=== PATIENT | female | born 1955 | race Caucasian/White ===

== ENCOUNTER 2018-02-13 15:18 | Emergency (ER) | payer MEDICAID ==
[~2018-02-13] VITALS: Ht 162.6 cm; Wt 81.8 kg
[~2018-02-13 15:18] MED LIST: CITA-278 PO; FAMO40TA59 PO; GLIM1TAB46 PO; LEVO75TA PO; LISI-642 PO; METF1000 PO; ONDA4TAB12 PO; PANT-47 PO; PRAV40TA3 PO
[2018-02-13] MEDS ORDERED: morphine 4 MG/ML inj SYRINge IV PRN (15:30)
[2018-02-13] MEDS ORDERED: normal saline 1000ML IV soln IVB ONE (15:30)
[2018-02-13] MEDS ORDERED: ondansetron/PF 4mg/2ml inj IV ONE (15:30)
[2018-02-13 15:47] LABS: BASOPHILS % (AUTO) 0.3 % (0-1); EOSINOPHILS # (AUTO) 0.2 X10'3 (0-0.9); EOSINOPHILS % (AUTO) 1.8 % (0-6); HEMOGLOBIN 13.1 g/dl (12.0-16.0); LYMPHOCYTES % (AUTO) 23.4 % (21-51); MEAN CORPUSCULAR HEMOGLOBIN 28.1 PG (27.0-31.0); MEAN CORPUSCULAR HGB CONC 33.5 % (33.0-36.5); MEAN CORPUSCULAR VOLUME 83.7 FL (78-98); MEAN PLATELET VOLUME 7.3 FL (7.4-10.4); MONOCYTES # (AUTO) 0.4 X10'3 (0-0.9); MONOCYTES % (AUTO) 5.2 % (2-12); NEUTROPHILS % (AUTO) 69.3 % (42-75); PLATELET COUNT 242 X10'3 (140-440); RED BLOOD COUNT 4.66 X10'6 (4.20-5.60); RED CELL DISTRIBUTION WIDTH 15.5 % (11.5-14.5); WHITE BLOOD COUNT 8.7 X10'3 (4.5-11.0)
[2018-02-13 16:02] LABS: CLARITY,URINE CLEAR (Clear); COLOR,URINE YELLOW (Yellow); GLUCOSE, URINE NEGATIVE (Neg); KETONES,URINE NEGATIVE (Neg); LEUKOCYTE ESTERASE ,URINE TRACE (Neg); NITRITES, URINE NEGATIVE (Neg); OCCULT BLOOD,URINE TRACE-LYSED (Neg); PH,URINE 5.5 (4.8-8.0); PROTEIN,URINE NEGATIVE (Neg); UROBILINOGEN,URINE 0.2 E.U/dL (0.2-1.0)
[2018-02-13 16:03] LABS: UA COLLECTION TYPE VOIDED
[2018-02-13 16:05] LABS: ALANINE AMINOTRANSFERASE 22 U/L (12-78); ALBUMIN 3.8 G/DL (3.4-5.0); ALBUMIN/GLOBULIN RATIO 1.2 (1.1-1.5); ALKALINE PHOSPHATASE 62 IU/L (46-116); ANION GAP 13 (8-16); ASPARTATE AMINO TRANSFERASE 12 U/L (10-37); BILIRUBIN,TOTAL 0.2 MG/DL (0.1-1.0); BLOOD UREA NITROGEN 16 MG/DL (7-18); BUN/CREATININE RATIO 16.2 (6.6-38.0); CALCIUM 8.7 MG/DL (8.5-10.1); CHLORIDE 105 MMOL/L (99-107); CREATININE 0.99 MG/DL (0.40-0.90); GLUCOSE 252 MG/DL (70-104); LIPASE 132 U/L (73-393); POTASSIUM 3.6 MMOL/L (3.5-5.1); SODIUM 140 MMOL/L (135-145); TOTAL CARBON DIOXIDE 22.1 MMOL/L (24-32); TOTAL PROTEIN 7.1 G/DL (6.4-8.2); eGFR 56 ML/MIN
[2018-02-13 16:07] LABS: BACTERIA,URINE NONE SEEN /HPF (Neg); RBC,URINE NONE SEEN /HPF (0-2); WBC,URINE 0-4 /HPF (0-4)
[2018-02-13] MEDS ORDERED: ONDA4TAB9 SL ×2 (16:07→16:12)
[2018-02-13 16:08] LABS: SQUAMOUS EPITHELIAL CELL,UR FEW /LPF (FEW)
[2018-02-13 16:45] VITALS: BP 115/63
== END 2018-02-13 16:46 | disposition home or self-care (01) ==
LOC: ER 15:18
DX: A08.4 Viral intestinal infection, unspecified (principal); E86.0 Dehydration; R00.0 Tachycardia, unspecified; E78.00 Pure hypercholesterolemia, unspecified; I10 Essential (primary) hypertension; K21.9 Gastro-esophageal reflux disease without esophagitis; E11.9 Type 2 diabetes mellitus without complications; F31.9 Bipolar disorder, unspecified; Z90.89 Acquired absence of other organs; Z98.890 Other specified postprocedural states; Z79.84 Long term (current) use of oral hypoglycemic drugs; Z79.899 Other long term (current) drug therapy
CPT/HCPCS: 36415; 71045; 80053; 81001; 83690; 84484; 85025; 87077; 87088; 87186; 93005; 96361; 96374; 96375; 99285; J2270; J2405; J7030

== ENCOUNTER 2018-07-18 17:06 | Emergency (ER) | payer MEDICAID ==
[~2018-07-18] VITALS: Ht 162.6 cm; Wt 79.5 kg
[2018-07-18 17:14] VITALS: BP 124/75
[2018-07-18] MEDS ORDERED: HYDROcodone/acetaminophen 10/325mg tab PO ONE (17:50)
== END 2018-07-18 18:25 | disposition home or self-care (01) ==
LOC: ER 17:07
DX: G89.18 Other acute postprocedural pain (principal); M25.561 Pain in right knee; E78.00 Pure hypercholesterolemia, unspecified; I10 Essential (primary) hypertension; K21.9 Gastro-esophageal reflux disease without esophagitis; E11.9 Type 2 diabetes mellitus without complications; Z90.49 Acquired absence of other specified parts of digestive tract; Z98.890 Other specified postprocedural states; Z79.84 Long term (current) use of oral hypoglycemic drugs; Z79.899 Other long term (current) drug therapy
CPT/HCPCS: 99282

== ENCOUNTER 2019-01-12 09:39 | Emergency (ER) | payer MEDICAID ==
[~2019-01-12] VITALS: Ht 162.6 cm; Wt 79.5 kg
[~2019-01-12 09:39] MED LIST changes: -CITA-278 PO; +CITA20TA28 PO
[2019-01-12] MEDS ORDERED: normal saline 1000ML IV soln IVB ONE (09:45)
[2019-01-12] MEDS ORDERED: ondansetron/PF 4mg/2ml inj IV ONE (09:45)
[2019-01-12] MEDS ORDERED: morphine 4 MG/ML inj SYRINge IV PRN (09:45)
[2019-01-12 10:23] LABS: BASOPHILS % (AUTO) 0.6 % (0-1); EOSINOPHILS % (AUTO) 0.1 % (0-6); HEMATOCRIT 38.2 % (35.0-45.0); HEMOGLOBIN 12.7 g/dl (12.0-16.0); LYMPHOCYTES # (AUTO) 0.6 X10'3 (1.1-4.8); LYMPHOCYTES % (AUTO) 8.9 % (21-51); MEAN CORPUSCULAR HEMOGLOBIN 28.4 PG (27.0-31.0); MEAN CORPUSCULAR HGB CONC 33.3 g/dL (33.0-36.5); MEAN CORPUSCULAR VOLUME 85.5 FL (78-98); MEAN PLATELET VOLUME 7.6 FL (7.4-10.4); MONOCYTES # (AUTO) 0.4 X10'3 (0-0.9); NEUTROPHILS # (AUTO) 5.6 X10'3 (1.8-7.7); NEUTROPHILS % (AUTO) 84.4 % (42-75); PLATELET COUNT 262 X10'3 (140-440); RED BLOOD COUNT 4.47 X10'6 (4.20-5.60); RED CELL DISTRIBUTION WIDTH 14.2 % (11.5-14.5); WHITE BLOOD COUNT 6.7 X10'3 (4.5-11.0)
[2019-01-12 10:28] VITALS: BP 145/70
[2019-01-12 10:35] LABS: ALANINE AMINOTRANSFERASE 25 U/L (12-78); ALBUMIN 3.8 G/DL (3.4-5.0); ALBUMIN/GLOBULIN RATIO 1.2 (1.1-1.5); ALKALINE PHOSPHATASE 68 IU/L (46-116); ANION GAP 14 (8-16); ASPARTATE AMINO TRANSFERASE 12 U/L (10-37); BILIRUBIN,TOTAL 0.5 MG/DL (0.1-1.0); BLOOD UREA NITROGEN 15 MG/DL (7-18); BUN/CREATININE RATIO 15.5 (6.6-38.0); CALCIUM 8.7 MG/DL (8.5-10.1); CHLORIDE 106 MMOL/L (99-107); CREATININE 0.97 MG/DL (0.40-0.90); GLUCOSE 308 MG/DL (70-104); LIPASE 62 U/L (73-393); POTASSIUM 3.5 MMOL/L (3.5-5.1); SODIUM 143 MMOL/L (135-145); TOTAL CARBON DIOXIDE 23.3 MMOL/L (24-32); TOTAL PROTEIN 7.1 G/DL (6.4-8.2); eGFR 58 ML/MIN
[2019-01-12] MEDS ORDERED: ONDA8TAB6 PO (11:41)
[2019-01-12] MEDS ORDERED: proCHLORperazine 10 MG/2 ml inj IV ONE (11:45)
== END 2019-01-12 11:55 | disposition home or self-care (01) ==
LOC: ER 09:39
DX: E86.0 Dehydration (principal); E11.65 Type 2 diabetes mellitus with hyperglycemia; R11.2 Nausea with vomiting, unspecified; R19.7 Diarrhea, unspecified; E78.00 Pure hypercholesterolemia, unspecified; I10 Essential (primary) hypertension; K21.9 Gastro-esophageal reflux disease without esophagitis; F32.9 Major depressive disorder, single episode, unspecified; F17.200 Nicotine dependence, unspecified, uncomplicated; Z88.8 Allergy status to other drugs, medicaments and biological substances; Z79.84 Long term (current) use of oral hypoglycemic drugs; Z79.899 Other long term (current) drug therapy; Z98.890 Other specified postprocedural states; Z90.49 Acquired absence of other specified parts of digestive tract
CPT/HCPCS: 36415; 80053; 83690; 85025; 96361; 96374; 96375; 99283; J0780; J2270; J7030

== ENCOUNTER 2020-12-29 08:17 | Day surgery (SDC) | payer MEDICARE, MEDICAID ==
[~2020-12-29] VITALS: Ht 162.6 cm; Wt 79.5 kg
[~2020-12-29 08:17] MED LIST changes: +AMA1T PO; -GLIM1TAB46 PO; +ONDA8TAB6 PO
[2020-12-29 08:35] VITALS: BP 134/76
[2020-12-29] MEDS ORDERED: fentaNYL/PF 50MCG/1 ML 2ML syringe ONE (08:50)
[2020-12-29] MEDS ORDERED: MIDAZolam 1 MG/ML 5ML VIAL ONE (08:51)
[2020-12-29] MEDS ORDERED: FERR-28 PO (09:21)
[2020-12-29] MEDS ORDERED: MAGN400C PO (09:22)
[2020-12-29] MEDS ORDERED: CALC500T11 PO (09:22)
[2020-12-29 09:35] VITALS: BP 117/74
[2020-12-29 09:45] VITALS: BP 114/68
[2020-12-29 09:55] VITALS: BP 116/70
[2020-12-29 10:05] VITALS: BP 116/72
== END 2020-12-29 10:35 | disposition home or self-care (01) ==
LOC: GI LAB 08:17
PROVIDERS: ATTEND Specialist
DX: R10.30 Lower abdominal pain, unspecified (principal); R19.5 Other fecal abnormalities; I10 Essential (primary) hypertension; E11.9 Type 2 diabetes mellitus without complications; Z79.84 Long term (current) use of oral hypoglycemic drugs; Z79.899 Other long term (current) drug therapy
CPT/HCPCS: 45378; 99153; G0500; J2250; J3010; J7040; 99152; A4620

== ENCOUNTER 2020-12-31 17:58 | Emergency (ER) | payer MEDICARE, MEDICAID ==
[~2020-12-31] VITALS: Ht 162.6 cm; Wt 79.5 kg
[~2020-12-31 17:58] MED LIST changes: +CALC500T11 PO; -FAMO40TA59 PO; +FERR-28 PO; +MAGN400C PO; -ONDA4TAB12 PO; -ONDA8TAB6 PO
[2020-12-31 18:48] VITALS: BP 137/84
[2020-12-31 19:22] LABS: CLARITY,URINE CLEAR (Clear); COLOR,URINE YELLOW (Yellow); GLUCOSE, URINE NEGATIVE (Neg); KETONES,URINE NEGATIVE (Neg); LEUKOCYTE ESTERASE ,URINE SMALL (Neg); NITRITES, URINE NEGATIVE (Neg); OCCULT BLOOD,URINE NEGATIVE (Neg); PROTEIN,URINE NEGATIVE (Neg); UROBILINOGEN,URINE 0.2 E.U/dL (0.2-1.0)
[2020-12-31 19:30] LABS: UA COLLECTION TYPE CLN CATCH MIDSTREAM
[2020-12-31 19:31] LABS: BACTERIA,URINE NONE SEEN /HPF (Neg); RBC,URINE NONE SEEN /HPF (0-2); SQUAMOUS EPITHELIAL CELL,UR FEW /LPF (FEW); WBC,URINE 0-4 /HPF (0-4)
[2020-12-31 19:48] LABS: BASOPHILS % (AUTO) 0.8 % (0-1); EOSINOPHILS # (AUTO) 0.2 X10'3 (0-0.9); EOSINOPHILS % (AUTO) 3.8 % (0-6); HEMATOCRIT 34.5 % (35.0-45.0); HEMOGLOBIN 11.5 g/dl (12.0-16.0); LYMPHOCYTES # (AUTO) 1.9 X10'3 (1.1-4.8); LYMPHOCYTES % (AUTO) 34.5 % (21-51); MEAN CORPUSCULAR HEMOGLOBIN 29.5 PG (27.0-31.0); MEAN CORPUSCULAR HGB CONC 33.3 g/dL (33.0-36.5); MEAN CORPUSCULAR VOLUME 88.7 FL (78-98); MEAN PLATELET VOLUME 7.5 FL (7.4-10.4); MONOCYTES # (AUTO) 0.4 X10'3 (0-0.9); NEUTROPHILS # (AUTO) 2.9 X10'3 (1.8-7.7); NEUTROPHILS % (AUTO) 52.9 % (42-75); PLATELET COUNT 234 X10'3 (140-440); RED BLOOD COUNT 3.89 X10'6 (4.20-5.60); RED CELL DISTRIBUTION WIDTH 14.5 % (11.5-14.5); WHITE BLOOD COUNT 5.5 X10'3 (4.5-11.0)
[2020-12-31 20:17] LABS: ALANINE AMINOTRANSFERASE 29 U/L (12-78); ALBUMIN 3.9 G/DL (3.4-5.0); ALBUMIN/GLOBULIN RATIO 1.3 (1.1-1.5); ALKALINE PHOSPHATASE 45 IU/L (46-116); ANION GAP 7 (8-16); ASPARTATE AMINO TRANSFERASE 20 U/L (10-37); BILIRUBIN,TOTAL 0.4 MG/DL (0.1-1.0); BLOOD UREA NITROGEN 14 MG/DL (7-18); BUN/CREATININE RATIO 16.5 (6.6-38.0); CALCIUM 8.8 MG/DL (8.5-10.1); CHLORIDE 107 MMOL/L (99-107); CREATININE 0.85 MG/DL (0.40-0.90); GLUCOSE 105 MG/DL (70-104); LIPASE 69 U/L (73-393); POTASSIUM 3.6 MMOL/L (3.5-5.1); SODIUM 141 MMOL/L (135-145); TOTAL CARBON DIOXIDE 27.3 MMOL/L (24-32); TOTAL PROTEIN 6.9 G/DL (6.4-8.2); eGFR 67 ML/MIN
[2020-12-31] MEDS ORDERED: lactulose 20gm/30ml cup PO ONE (20:25)
[2020-12-31] MEDS ORDERED: magnesium hydroxide 30ml (MOM) UD suspension PO ONE (20:25)
== END 2020-12-31 21:52 | disposition home or self-care (01) ==
LOC: ER 17:59
DX: K59.00 Constipation, unspecified (principal); R11.2 Nausea with vomiting, unspecified; E78.00 Pure hypercholesterolemia, unspecified; I10 Essential (primary) hypertension; K21.9 Gastro-esophageal reflux disease without esophagitis; E11.9 Type 2 diabetes mellitus without complications; Z90.49 Acquired absence of other specified parts of digestive tract; Z98.890 Other specified postprocedural states; Z88.8 Allergy status to other drugs, medicaments and biological substances; Z79.899 Other long term (current) drug therapy
CPT/HCPCS: 36415; 74176; 80053; 81001; 83690; 85025; 87077; 87088; 87186; 99284

== ENCOUNTER 2021-01-10 21:19 | Emergency (ER) | payer MEDICARE, MEDICAID ==
[~2021-01-10] VITALS: Ht 162.6 cm; Wt 77.3 kg
[2021-01-10 21:35] VITALS: BP 119/78
[2021-01-10 22:32] LABS: BASOPHILS % (AUTO) 0.6 % (0-1); EOSINOPHILS # (AUTO) 0.2 X10'3 (0-0.9); EOSINOPHILS % (AUTO) 3.2 % (0-6); HEMATOCRIT 37.9 % (35.0-45.0); HEMOGLOBIN 12.7 g/dl (12.0-16.0); LYMPHOCYTES # (AUTO) 2.2 X10'3 (1.1-4.8); LYMPHOCYTES % (AUTO) 34.8 % (21-51); MEAN CORPUSCULAR HEMOGLOBIN 29.5 PG (27.0-31.0); MEAN CORPUSCULAR HGB CONC 33.4 g/dL (33.0-36.5); MEAN CORPUSCULAR VOLUME 88.1 FL (78-98); MEAN PLATELET VOLUME 7.5 FL (7.4-10.4); MONOCYTES # (AUTO) 0.5 X10'3 (0-0.9); MONOCYTES % (AUTO) 7.6 % (2-12); NEUTROPHILS # (AUTO) 3.4 X10'3 (1.8-7.7); NEUTROPHILS % (AUTO) 53.8 % (42-75); PLATELET COUNT 263 X10'3 (140-440); RED CELL DISTRIBUTION WIDTH 14.3 % (11.5-14.5); WHITE BLOOD COUNT 6.3 X10'3 (4.5-11.0)
[2021-01-10 22:45] LABS: ALANINE AMINOTRANSFERASE 29 U/L (12-78); ALBUMIN 4.3 G/DL (3.4-5.0); ALBUMIN/GLOBULIN RATIO 1.4 (1.1-1.5); ALKALINE PHOSPHATASE 48 IU/L (46-116); ANION GAP 9 (8-16); ASPARTATE AMINO TRANSFERASE 22 U/L (10-37); BILIRUBIN,TOTAL 0.6 MG/DL (0.1-1.0); BLOOD UREA NITROGEN 13 MG/DL (7-18); BUN/CREATININE RATIO 14.4 (6.6-38.0); CALCIUM 9.4 MG/DL (8.5-10.1); CHLORIDE 104 MMOL/L (99-107); GLUCOSE 89 MG/DL (70-104); LIPASE 56 U/L (73-393); POTASSIUM 3.7 MMOL/L (3.5-5.1); SODIUM 142 MMOL/L (135-145); TOTAL CARBON DIOXIDE 29.2 MMOL/L (24-32); TOTAL PROTEIN 7.3 G/DL (6.4-8.2); eGFR 62 ML/MIN
== END 2021-01-11 03:35 | disposition left against medical advice (07) ==
LOC: ER 21:21
DX: R42 Dizziness and giddiness (principal); Z53.21 Procedure and treatment not carried out due to patient leaving prior to being seen by health care provider
CPT/HCPCS: 36415; 80053; 83690; 85025; 93005

== ENCOUNTER 2021-05-14 01:02 | Emergency (ER) | payer MEDICARE, MEDICAID ==
[~2021-05-14] VITALS: Ht 162.6 cm; Wt 70.5 kg
[2021-05-14] MEDS ORDERED: pantoprazole 40 MG vial IV ONE (01:25)
[2021-05-14] MEDS ORDERED: ondansetron/PF 4mg/2ml inj IV ONE (01:25)
[2021-05-14] MEDS ORDERED: normal saline 1000ML IV soln IVB ONE (01:25)
[2021-05-14] MEDS ORDERED: diazepam inj 5 MG/ML inj. IV ONE (01:55)
[2021-05-14 02:03] LABS: BASOPHILS % (AUTO) 0.3 % (0-1); EOSINOPHILS % (AUTO) 0.2 % (0-6); HEMATOCRIT 39.1 % (35.0-45.0); HEMOGLOBIN 13.2 g/dl (12.0-16.0); LYMPHOCYTES # (AUTO) 1.2 X10'3 (1.1-4.8); LYMPHOCYTES % (AUTO) 10.8 % (21-51); MEAN CORPUSCULAR HEMOGLOBIN 29.7 PG (27.0-31.0); MEAN CORPUSCULAR HGB CONC 33.7 g/dL (33.0-36.5); MEAN PLATELET VOLUME 7.8 FL (7.4-10.4); MONOCYTES # (AUTO) 0.6 X10'3 (0-0.9); MONOCYTES % (AUTO) 5.8 % (2-12); NEUTROPHILS # (AUTO) 8.9 X10'3 (1.8-7.7); NEUTROPHILS % (AUTO) 82.9 % (42-75); PLATELET COUNT 282 X10'3 (140-440); RED BLOOD COUNT 4.44 X10'6 (4.20-5.60); RED CELL DISTRIBUTION WIDTH 13.7 % (11.5-14.5); WHITE BLOOD COUNT 10.7 X10'3 (4.5-11.0)
[2021-05-14 02:20] LABS: ALANINE AMINOTRANSFERASE 32 U/L (12-78); ALBUMIN 4.1 G/DL (3.4-5.0); ALBUMIN/GLOBULIN RATIO 1.3 (1.1-1.5); ALKALINE PHOSPHATASE 59 IU/L (46-116); ANION GAP 13 (8-16); ASPARTATE AMINO TRANSFERASE 18 U/L (10-37); BILIRUBIN,TOTAL 0.5 MG/DL (0.1-1.0); BLOOD UREA NITROGEN 18 MG/DL (7-18); BUN/CREATININE RATIO 16.2 (6.6-38.0); CALCIUM 9.3 MG/DL (8.5-10.1); CHLORIDE 107 MMOL/L (99-107); CREATININE 1.11 MG/DL (0.40-0.90); GLUCOSE 340 MG/DL (70-104); POTASSIUM 3.9 MMOL/L (3.5-5.1); SODIUM 145 MMOL/L (135-145); TOTAL PROTEIN 7.2 G/DL (6.4-8.2); eGFR 49 ML/MIN
[2021-05-14 02:21] LABS: LIPASE 64 U/L (73-393)
[2021-05-14] MEDS ORDERED: proCHLORperazine 10 MG/2 ml inj IV ONE (03:20)
[2021-05-14 04:15] LABS: CLARITY,URINE CLEAR (Clear); COLOR,URINE YELLOW (Yellow); UA COLLECTION TYPE CLN CATCH MIDSTREAM
[2021-05-14 04:16] LABS: GLUCOSE, URINE >=1000 mg/dl (Neg); KETONES,URINE 80 mg/dl (Neg); LEUKOCYTE ESTERASE ,URINE NEGATIVE (Neg); NITRITES, URINE POSITIVE (Neg); OCCULT BLOOD,URINE NEGATIVE (Neg); PROTEIN,URINE NEGATIVE (Neg); UROBILINOGEN,URINE 0.2 E.U/dL (0.2-1.0)
[2021-05-14 04:26] LABS: BACTERIA,URINE 4+ /HPF (Neg); MUCUS STRANDS NONE SEEN /LPF (Neg); RBC,URINE NONE SEEN /HPF (0-2); SQUAMOUS EPITHELIAL CELL,UR NONE SEEN /LPF (FEW)
[2021-05-14] MEDS ORDERED: CefTRIAXone/D5W-Rocephin 1gm 50 ML IV ONE (05:10)
[2021-05-14] MEDS ORDERED: CEPH-585 PO (06:06)
[2021-05-14] MEDS ORDERED: PROC-8 PO (06:06)
[2021-05-14 08:16] VITALS: BP 112/60
== END 2021-05-14 08:17 | disposition home or self-care (01) ==
LOC: ER 01:03
DX: N39.0 Urinary tract infection, site not specified (principal); R11.2 Nausea with vomiting, unspecified; R19.7 Diarrhea, unspecified; E78.00 Pure hypercholesterolemia, unspecified; K21.9 Gastro-esophageal reflux disease without esophagitis; E11.9 Type 2 diabetes mellitus without complications; Z90.49 Acquired absence of other specified parts of digestive tract; Z98.890 Other specified postprocedural states; Z72.89 Other problems related to lifestyle; Z79.899 Other long term (current) drug therapy; Z88.7 Allergy status to serum and vaccine; Z88.8 Allergy status to other drugs, medicaments and biological substances
CPT/HCPCS: 36415; 71045; 80053; 81001; 83690; 84484; 85025; 87077; 87088; 87186; 93005; 96361; 96365; 96366; 96375; 99285; C9113; J0696; J0780; J2405; J3360; J7030; 96374; 99284

== ENCOUNTER 2021-08-12 12:03 | Emergency (ER) | payer MEDICARE, MEDICAID ==
[~2021-08-12] VITALS: Ht 162.6 cm; Wt 68.0 kg
[~2021-08-12 12:03] MED LIST changes: +CEPH-585 PO; +PROC-8 PO
[2021-08-12 12:58] VITALS: BP 101/67
[2021-08-12] MEDS ORDERED: ketorolac trometh inj. 60 MG/2 ML VIAL IM ONE (14:35)
[2021-08-12] MEDS ORDERED: HYDR-3972 PO (14:44)
[2021-08-12] MEDS ORDERED: ORPH100T2 PO (14:44)
== END 2021-08-12 15:29 | disposition home or self-care (01) ==
LOC: ER 12:03
DX: M54.2 Cervicalgia (principal); R59.1 Generalized enlarged lymph nodes; E78.00 Pure hypercholesterolemia, unspecified; I10 Essential (primary) hypertension; K21.9 Gastro-esophageal reflux disease without esophagitis; E11.9 Type 2 diabetes mellitus without complications; F31.9 Bipolar disorder, unspecified; Z90.49 Acquired absence of other specified parts of digestive tract; Z98.890 Other specified postprocedural states; Z72.89 Other problems related to lifestyle; Z88.8 Allergy status to other drugs, medicaments and biological substances; Z79.899 Other long term (current) drug therapy; Z79.84 Long term (current) use of oral hypoglycemic drugs
CPT/HCPCS: 72040; 96372; 99283; J1885

== ENCOUNTER 2021-10-15 21:43 | Emergency (ER) | payer MEDICARE, MEDICAID ==
[~2021-10-15] VITALS: Ht 162.6 cm; Wt 68.1 kg
[~2021-10-15 21:43] MED LIST changes: +ORPH100T2 PO
[2021-10-15 22:01] VITALS: BP 125/77
[2021-10-15] MEDS ORDERED: oxyCODONE IR 5mg (immed. release) tablet PO ONE (23:30)
[2021-10-15] MEDS ORDERED: OXYC-658 PO (23:34)
== END 2021-10-15 23:57 | disposition home or self-care (01) ==
LOC: ER 21:47
DX: M77.41 Metatarsalgia, right foot (principal); E78.00 Pure hypercholesterolemia, unspecified; I10 Essential (primary) hypertension; K21.9 Gastro-esophageal reflux disease without esophagitis; E11.9 Type 2 diabetes mellitus without complications; Z79.899 Other long term (current) drug therapy; Z88.8 Allergy status to other drugs, medicaments and biological substances
CPT/HCPCS: 73630; 99283

== ENCOUNTER 2022-01-09 14:30 | Outpatient (CLI) | payer MEDICARE, MEDICAID ==
[2022-01-09 10:27] LABS: CLARITY,URINE CLEAR (Clear); COLOR,URINE YELLOW (Yellow); GLUCOSE, URINE >=1000 mg/dl (Neg); KETONES,URINE NEGATIVE (Neg); LEUKOCYTE ESTERASE ,URINE TRACE (Neg); NITRITES, URINE NEGATIVE (Neg); OCCULT BLOOD,URINE TRACE-INTACT (Neg); PH,URINE 5.5 (4.8-8.0); PROTEIN,URINE NEGATIVE (Neg); UROBILINOGEN,URINE 0.2 E.U/dL (0.2-1.0)
[2022-01-09 10:35] LABS: HEMOGLOBIN A1C 7.8 % (4.5-6.2)
[2022-01-09 10:38] LABS: BASOPHILS % (AUTO) 0.8 % (0-1); EOSINOPHILS # (AUTO) 0.1 X10'3 (0-0.9); EOSINOPHILS % (AUTO) 1.8 % (0-6); LYMPHOCYTES # (AUTO) 1.8 X10'3 (1.1-4.8); LYMPHOCYTES % (AUTO) 34.6 % (21-51); MEAN CORPUSCULAR HEMOGLOBIN 27.2 PG (27.0-31.0); MEAN CORPUSCULAR HGB CONC 32.7 g/dL (33.0-36.5); MEAN CORPUSCULAR VOLUME 83.2 FL (78-98); MEAN PLATELET VOLUME 7.3 FL (7.4-10.4); MONOCYTES # (AUTO) 0.4 X10'3 (0-0.9); MONOCYTES % (AUTO) 7.3 % (2-12); NEUTROPHILS % (AUTO) 55.5 % (42-75); PRE OP HEMATOCRIT 43.2 % (35.0-45.0); PRE OP HEMOGLOBIN 14.1 g/dL (12.0-16.0); PRE OP PLATELET COUNT 250 X10'3 (140-440); RED BLOOD COUNT 5.19 X10'6 (4.20-5.60); RED CELL DISTRIBUTION WIDTH 15.5 % (11.5-14.5)
[2022-01-09 10:39] LABS: UA COLLECTION TYPE CLN CATCH MIDSTREAM
[2022-01-09 10:41] LABS: ALBUMIN 4.2 G/DL (3.4-5.0); ALBUMIN/GLOBULIN RATIO 1.2 (1.1-1.5); ALKALINE PHOSPHATASE 64 IU/L (46-116); BLOOD UREA NITROGEN 17 MG/DL (7-18); BUN/CREATININE RATIO 19.3 (6.6-38.0); CALCIUM 9.2 MG/DL (8.5-10.1); CHLORIDE 105 MMOL/L (99-107); CREATININE 0.88 MG/DL (0.40-0.90); PRE OP ALT 28 U/L (30-65); PRE OP ANION GAP 10 (8-16); PRE OP AST 20 U/L (10-37); PRE OP BILIRUB, TOTAL 0.5 MG/DL (0.0-1.0); PRE OP GLUCOSE 108 MG/DL (70-104); PRE OP POTASSIUM 4.1 MMOL/L (3.4-5.1); PRE OP SODIUM 143 MMOL/L (135-145); TOTAL CARBON DIOXIDE 28.2 MMOL/L (24-32); TOTAL PROTEIN 7.7 G/DL (6.4-8.2); eGFR 64 ML/MIN
[2022-01-09 11:01] LABS: MUCUS STRANDS FEW /LPF (Neg)
[2022-01-09 11:04] LABS: BACTERIA,URINE 2+ /HPF (Neg)
[2022-01-09 11:05] LABS: RBC,URINE 0-2 /HPF (0-2)
[2022-01-09 11:06] LABS: TRANSITIONAL EPI CELLS,URINE FEW /HPF
[2022-01-09 11:09] LABS: AMORPHOUS URATES 1+
[2022-01-09 11:11] LABS: SQUAMOUS EPITHELIAL CELL,UR MODERATE /LPF (FEW)
[2022-01-09 11:13] LABS: WBC,URINE 20-30 /HPF (0-4)
[2022-01-09 11:16] LABS: WBC CLUMPS,URINE MODERATE /HPF (NEGATIVE)
[~2022-01-09 14:30] MED LIST changes: +ALBU8.5H17 INH; +ATOR40TA PO; +CALC-853 PO; +DICL20GE TOP; +EMPA10TA PO; +FLUT1AER INH; +POLY15DR66 EACHEYE; +SITA25TA3 PO
== END 2022-01-09 23:59 | disposition home or self-care (01) ==
LOC: PRE-OP 14:30 → EDSTATUS 01-11 08:45
PROVIDERS: ATTEND Podiatrist Foot & Ankle Surgery
DX: Z01.818 Encounter for other preprocedural examination (principal); M20.42 Other hammer toe(s) (acquired), left foot; M19.072 Primary osteoarthritis, left ankle and foot; I10 Essential (primary) hypertension; E11.9 Type 2 diabetes mellitus without complications
CPT/HCPCS: 36415; 80053; 81001; 83036; 85025; 87077; 87088; 87186; 93005

== ENCOUNTER 2022-08-08 19:50 | Emergency (ER) | payer MEDICARE, MEDICAID ==
[~2022-08-08] VITALS: Ht 162.6 cm; Wt 82.4 kg
[~2022-08-08 19:50] MED LIST changes: -CALC500T11 PO; -CEPH-585 PO; -LISI-642 PO; -ORPH100T2 PO; -PRAV40TA3 PO; -PROC-8 PO
[2022-08-08 22:32] LABS: BASOPHILS % (AUTO) 0.7 % (0-1); EOSINOPHILS # (AUTO) 0.1 X10'3 (0-0.9); EOSINOPHILS % (AUTO) 1.5 % (0-6); HEMATOCRIT 40.6 % (35.0-45.0); HEMOGLOBIN 13.3 g/dl (12.0-16.0); LYMPHOCYTES # (AUTO) 2.4 X10'3 (1.1-4.8); MEAN CORPUSCULAR HEMOGLOBIN 27.9 PG (27.0-31.0); MEAN CORPUSCULAR HGB CONC 32.7 g/dL (33.0-36.5); MEAN CORPUSCULAR VOLUME 85.3 FL (78-98); MEAN PLATELET VOLUME 7.6 FL (7.4-10.4); MONOCYTES # (AUTO) 0.5 X10'3 (0-0.9); MONOCYTES % (AUTO) 7.7 % (2-12); NEUTROPHILS # (AUTO) 3.6 X10'3 (1.8-7.7); NEUTROPHILS % (AUTO) 54.1 % (42-75); PLATELET COUNT 257 X10'3 (140-440); RED BLOOD COUNT 4.76 X10'6 (4.20-5.60); RED CELL DISTRIBUTION WIDTH 15.1 % (11.5-14.5); WHITE BLOOD COUNT 6.7 X10'3 (4.5-11.0)
[2022-08-08 22:41] LABS: CLARITY,URINE SLIGHTLY CLOUDY (Clear); COLOR,URINE YELLOW (Yellow); GLUCOSE, URINE >=1000 mg/dl (Neg); KETONES,URINE NEGATIVE (Neg); LEUKOCYTE ESTERASE ,URINE TRACE (Neg); NITRITES, URINE POSITIVE (Neg); OCCULT BLOOD,URINE TRACE-INTACT (Neg); PROTEIN,URINE NEGATIVE (Neg); UROBILINOGEN,URINE 0.2 E.U/dL (0.2-1.0)
[2022-08-08 22:42] LABS: ALANINE AMINOTRANSFERASE 24 U/L (12-78); ALBUMIN 3.8 G/DL (3.4-5.0); ALBUMIN/GLOBULIN RATIO 1.1 (1.1-1.5); ALKALINE PHOSPHATASE 69 IU/L (46-116); ANION GAP 9 (8-16); ASPARTATE AMINO TRANSFERASE 16 U/L (10-37); BILIRUBIN,TOTAL 0.3 MG/DL (0.1-1.0); BLOOD UREA NITROGEN 25 MG/DL (7-18); BUN/CREATININE RATIO 28.4 (6.6-38.0); CALCIUM 9.4 MG/DL (8.5-10.1); CHLORIDE 108 MMOL/L (99-107); CREATININE 0.88 MG/DL (0.40-0.90); GLUCOSE 125 MG/DL (70-104); LIPASE 79 U/L (73-393); POTASSIUM 4.3 MMOL/L (3.5-5.1); SODIUM 141 MMOL/L (135-145); TOTAL CARBON DIOXIDE 23.8 MMOL/L (24-32); TOTAL PROTEIN 7.3 G/DL (6.4-8.2); eGFR 64 ML/MIN
[2022-08-08 22:46] LABS: UA COLLECTION TYPE NON-SPECIFIED
[2022-08-08 22:47] LABS: SQUAMOUS EPITHELIAL CELL,UR MODERATE /LPF (FEW)
[2022-08-08 22:48] LABS: BACTERIA,URINE 2+ /HPF (Neg); TRANSITIONAL EPI CELLS,URINE MODERATE /HPF
[2022-08-08 22:49] LABS: RBC,URINE 0-2 /HPF (0-2); WBC CLUMPS,URINE MANY /HPF (NEGATIVE)
--- NOTE | 2022-08-08 23:15 | NUR ---
pt. taken to Room F via w/c for pelvic exam. Exam done by Dr. Mensah with myself present in room. Pt. beth with some discomfort. Back to room 1 via w/c, resting quietly.
[2022-08-09 01:58] VITALS: BP 130/87
[2022-08-09] MEDS ORDERED: CEPH-585 PO (02:05)
[2022-08-09] MEDS ORDERED: FLUC150T PO (02:05)
== END 2022-08-09 03:03 | disposition home or self-care (01) ==
LOC: ER 19:51
DX: N39.0 Urinary tract infection, site not specified (principal); R10.2 Pelvic and perineal pain; I10 Essential (primary) hypertension; E78.00 Pure hypercholesterolemia, unspecified; K21.9 Gastro-esophageal reflux disease without esophagitis; E11.9 Type 2 diabetes mellitus without complications; F31.9 Bipolar disorder, unspecified; Z88.8 Allergy status to other drugs, medicaments and biological substances
CPT/HCPCS: 36415; 74176; 80053; 81001; 83690; 85025; 87077; 87088; 87186; 87210; 99284

== ENCOUNTER 2022-08-26 20:31 | Emergency (ER) | payer MEDICARE, MEDICAID ==
[~2022-08-26] VITALS: Ht 162.6 cm; Wt 76.4 kg
[~2022-08-26 20:31] MED LIST changes: +CEPH-585 PO
[2022-08-26 21:02] VITALS: BP 118/82
[2022-08-26 21:20] LABS: CLARITY,URINE SLIGHTLY CLOUDY (Clear); COLOR,URINE YELLOW (Yellow); GLUCOSE, URINE >=1000 mg/dl (Neg); KETONES,URINE TRACE mg/dl (Neg); LEUKOCYTE ESTERASE ,URINE NEGATIVE (Neg); NITRITES, URINE NEGATIVE (Neg); OCCULT BLOOD,URINE TRACE-INTACT (Neg); PROTEIN,URINE NEGATIVE (Neg); UROBILINOGEN,URINE 0.2 E.U/dL (0.2-1.0)
[2022-08-26 21:42] LABS: UA COLLECTION TYPE CLN CATCH MIDSTREAM
[2022-08-26 21:44] LABS: RBC,URINE 0-2 /HPF (0-2); SQUAMOUS EPITHELIAL CELL,UR MANY /LPF (FEW); WBC,URINE 0-4 /HPF (0-4)
[2022-08-26 21:45] LABS: BACTERIA,URINE FEW /HPF (Neg)
[2022-08-26] MEDS ORDERED: HYDR30CR99 RC (23:52)
[2022-08-26] MEDS ORDERED: MICO24CM2 VG (23:52)
== END 2022-08-27 00:30 | disposition home or self-care (01) ==
LOC: ER 20:31
DX: K64.4 Residual hemorrhoidal skin tags (principal); N76.0 Acute vaginitis; I10 Essential (primary) hypertension; E78.00 Pure hypercholesterolemia, unspecified; K21.9 Gastro-esophageal reflux disease without esophagitis; E11.9 Type 2 diabetes mellitus without complications; F31.9 Bipolar disorder, unspecified; Z88.8 Allergy status to other drugs, medicaments and biological substances
CPT/HCPCS: 81001; 99284

== ENCOUNTER 2022-11-28 21:08 | Emergency (ER) | payer MEDICARE, MEDICAID ==
[~2022-11-28] VITALS: Ht 162.6 cm; Wt 72.7 kg
[~2022-11-28 21:08] MED LIST changes: +HYDR30CR99 RC; +MICO24CM2 VG
[2022-11-28 21:49] LABS: CLARITY,URINE SLIGHTLY CLOUDY (Clear); COLOR,URINE YELLOW (Yellow); GLUCOSE, URINE >=1000 mg/dl (Neg); KETONES,URINE NEGATIVE (Neg); LEUKOCYTE ESTERASE ,URINE NEGATIVE (Neg); NITRITES, URINE NEGATIVE (Neg); OCCULT BLOOD,URINE LARGE (Neg); PROTEIN,URINE NEGATIVE (Neg); UROBILINOGEN,URINE 0.2 E.U/dL (0.2-1.0)
[2022-11-28 21:50] LABS: UA COLLECTION TYPE CLN CATCH MIDSTREAM
[2022-11-28 21:56] LABS: BACTERIA,URINE FEW /HPF (Neg); RBC,URINE TNTC /HPF (0-2)
[2022-11-28 21:57] LABS: SQUAMOUS EPITHELIAL CELL,UR FEW /LPF (FEW); WBC CLUMPS,URINE FEW /HPF (NEGATIVE)
[2022-11-28 22:02] LABS: EOSINOPHILS # (AUTO) 0.1 X10'3 (0-0.9); HEMATOCRIT 39.8 % (35.0-45.0); NEUTROPHILS # (AUTO) 2.7 X10'3 (1.8-7.7); WHITE BLOOD COUNT 5.3 X10'3 (4.5-11.0)
[2022-11-28 22:04] LABS: BASOPHILS % (AUTO) 0.6 % (0-1); EOSINOPHILS % (AUTO) 1.9 % (0-6); HEMOGLOBIN 13.1 g/dl (12.0-16.0); LYMPHOCYTES % (AUTO) 38.1 % (21-51); MEAN CORPUSCULAR HEMOGLOBIN 28.6 PG (27.0-31.0); MEAN CORPUSCULAR HGB CONC 32.9 g/dL (33.0-36.5); MEAN CORPUSCULAR VOLUME 86.8 FL (78-98); MEAN PLATELET VOLUME 7.5 FL (7.4-10.4); MONOCYTES # (AUTO) 0.5 X10'3 (0-0.9); MONOCYTES % (AUTO) 8.9 % (2-12); NEUTROPHILS % (AUTO) 50.5 % (42-75); PLATELET COUNT 234 X10'3 (140-440); RED BLOOD COUNT 4.58 X10'6 (4.20-5.60)
[2022-11-28 22:13] LABS: ALANINE AMINOTRANSFERASE 30 U/L (12-78); ALBUMIN 3.9 G/DL (3.4-5.0); ALBUMIN/GLOBULIN RATIO 1.2 (1.1-1.5); ALKALINE PHOSPHATASE 52 IU/L (46-116); ANION GAP 10 (8-16); ASPARTATE AMINO TRANSFERASE 22 U/L (10-37); BILIRUBIN,TOTAL 0.2 MG/DL (0.1-1.0); BLOOD UREA NITROGEN 17 MG/DL (7-18); BUN/CREATININE RATIO 18.5 (10.0-20.0); CHLORIDE 108 MMOL/L (99-107); CREATININE 0.92 MG/DL (0.40-0.90); GLUCOSE 132 MG/DL (70-104); POTASSIUM 3.7 MMOL/L (3.5-5.1); SODIUM 141 MMOL/L (135-145); TOTAL CARBON DIOXIDE 23.5 MMOL/L (24-32); TOTAL PROTEIN 7.1 G/DL (6.4-8.2); eGFR 61 ML/MIN
[2022-11-29] MEDS ORDERED: ondansetron/PF 4mg/2ml inj IV ONE (01:05)
[2022-11-29] MEDS ORDERED: normal saline 1000ML IV soln IVB ONE (01:05)
--- NOTE | 2022-11-29 01:45 | NUR ---
PT TO CT
[2022-11-29] MEDS ORDERED: iohexol 300mg/ml 100ml inj. ONE (01:55)
[2022-11-29] MEDS ORDERED: CEPH-585 PO (03:29)
[2022-11-29 03:50] VITALS: BP 124/84
== END 2022-11-29 03:46 | disposition home or self-care (01) ==
LOC: ER 21:09
DX: N39.0 Urinary tract infection, site not specified (principal); K56.7 Ileus, unspecified; I10 Essential (primary) hypertension; E78.00 Pure hypercholesterolemia, unspecified; K21.9 Gastro-esophageal reflux disease without esophagitis; E11.9 Type 2 diabetes mellitus without complications; E03.9 Hypothyroidism, unspecified; F31.9 Bipolar disorder, unspecified; Z88.8 Allergy status to other drugs, medicaments and biological substances; Z88.5 Allergy status to narcotic agent; Z88.1 Allergy status to other antibiotic agents; Z79.899 Other long term (current) drug therapy
CPT/HCPCS: 36415; 71045; 74177; 80053; 81001; 83605; 84145; 85025; 87040; 87077; 87088; 87186; 96374; 99285; J2405; J3490; J7030; Q9967

== ENCOUNTER 2024-01-19 09:54 | Emergency (ER) | payer MEDICARE, MEDICAID ==
[~2024-01-19] VITALS: Ht 162.6 cm; Wt 63.6 kg
[~2024-01-19 09:54] MED LIST changes: -AMA1T PO; -CEPH-585 PO; +GLIM1TAB57 PO
[2024-01-19 09:56] VITALS: BP 133/87; PULSE 102; TEMP 98; O2SAT 97
[2024-01-19] MEDS ORDERED: TIZA4TAB11 PO (11:21)
[2024-01-19] MEDS ORDERED: NAPR-56 PO (11:21)
[2024-01-19] MEDS: tizanidine 4mg tablet PO PRN (11:38)
[2024-01-19] MEDS: ketorolac trometh. 30mg/ml inj. IM ONE (11:38)
[2024-01-19] MEDS: HYDROcodone/acetaminophen 5mg/325mg tablet PO ONE (11:38)
[2024-01-19 11:39] VITALS: RESP 18
== END 2024-01-19 11:40 | disposition home or self-care (01) ==
LOC: ER 09:55
DX: M43.6 Torticollis (principal); M54.2 Cervicalgia; I10 Essential (primary) hypertension; K21.9 Gastro-esophageal reflux disease without esophagitis; E11.9 Type 2 diabetes mellitus without complications; Z88.7 Allergy status to serum and vaccine
CPT/HCPCS: 72125; 96372; 99285; J1885

== ENCOUNTER 2025-04-23 22:21 | Emergency (ER) | payer MEDICARE, MEDICAID ==
[~2025-04-23] VITALS: Ht 162.6 cm; Wt 65.0 kg
[~2025-04-23 22:21] MED LIST changes: +CITA-178 PO; -CITA20TA28 PO; +TIZA4TAB11 PO
--- NOTE | 2025-04-23 22:59 | RADIOLOGY REPORT ---
INDICATION: Stimulator and Pain TECHNIQUE: 4 views of the lumbar spine were obtained. COMPARISON: None FINDINGS: Spinal stimulator in-situ. Instrumentation at the lumbosacral junction. Alignment is maintained. Vertebral body heights are preserved. No fractures. Relatively mild degenerative disc disease. IMPRESSION: No acute fracture or subluxation.
[2025-04-24 00:20] VITALS: BP 123/54; PULSE 71; O2SAT 99
--- NOTE | 2025-04-24 01:19 | Physician Documentation ---
History of Present Illness General Chief Complaint: Back Pain Stated Complaint: BACK STIMULATOR Time Seen by MD: 01:18 Primary Medical Doctor: Jayme History of Present Illness Initial Comments Patient is a 69-year-old female with a history of lower back pain the patient has a spinal stimulator in in the left lumbar region she states she was getting zapped continuously for proximally 3 minutes at around 2230. The patient states her has been turned off the spinal stimulator. She is now complaining of pain in the lumbar spine region that she describes as moderate. She denies any numbness or weakness in the extremities. The patient states she had spinal fusion surgery in February. Patient denies any fevers or chills. Patient is requesting a shot of Toradol. Medication Reconciliation Allergies: Coded Allergies: estrogens, conjugated (Verified Allergy, Unknown, 01/12/19) medroxyprogesterone (Verified Allergy, Unknown, 01/12/19) Scheduled Atorvastatin Calcium* (Lipitor*), 1 TAB PO DAILY, (Reported) Calcium Carbonate/Vitamin D3 (Calcium 600 + Vit D Caplet), 1 TAB PO DAILY, (Reported) Citalopram Hydrobromide* (Celexa*), 1 TAB PO DAILY, (Reported) Diclofenac Sodium (Voltaren Arthritis Pain), 1 APPLIC TOP QID, (Reported) Empagliflozin (Jardiance), 2.5 TAB PO DAILY, (Reported) Ferrous Sulfate (Iron), 1 TAB PO Q12H, (Reported) Fluticasone/Vilanterol (Breo Ellipta 100-25 Mcg INH), 1 PUFF INH DAILY, (Reported) Glimepiride* (Amaryl*), 4 MG PO DAILY, (Reported) Hydrocortisone (Proctocream-Hc), 1 APPLIC RC Q12H Levothyroxine Sodium* (Synthroid*), 1 TABLET PO DAILY, (Reported) Magnesium Oxide (Magnesium), 1 CAP PO DAILY, (Reported) Metformin Hcl* (Glucophage*), 1 TABLET PO BID, (Reported) Miconazole Nitrate (Monistat 3), 1 APPLICATOR VG HS Pantoprazole Sodium (PROTONIX tablet), 1 TAB PO DAILY, (Reported) Pantoprazole Sodium (PROTONIX tablet), 1 TAB PO DAILY, (Reported) Sitagliptin Phosphate* (Januvia*), 1 TAB PO DAILY, (Reported) Tizanidine Hcl (Zanaflex), 1 TAB PO Q12H Scheduled PRN Albuterol Sulfate (Proair Hfa), 2 PUFFS INH Q4HPRN PRN for wheezing, (Reported) Polyethylene Glycol 400 (Blink Tears), 1 DROP EACHEYE PRN PRN for dry eyes, (Reported) Past Medical History Past Medical History: High Cholesterol, Hypertension, Gastritis, GERD, Hernia, Diabetes, Thyroid (unspecified), Bipolar Past Surgical History: abdominal surgery, appendectomy, orthopedic surgeries, other Other Past Surgical History: ventral hernia repair Other Past Family History: none Smoking: Non-Smoker Alcohol Use: Sober Drug Use: none Lives with: Spouse Lives In: Home Occupation: disabled Review of Systems All Other Systems at this time: Reviewed and Negative Physical Exam Physical Exam Vital Signs: Temperature: 97.0, Heart Rate: 71, Respiratory Rate: 18, BP: 123/54, Pulse Oximetry: 99, Weight: 65.000 General Appearance VITALS: Reviewed and as above. GENERAL: Alert, no apparent distress. HEENT: Normocephalic, atraumatic, PERRL, EOMI, dry mucosa, no erythema GI: Soft, non-tender, bowels sounds present, no rebound, guarding, or rigidity BACK: Patient has lower lumbar left-sided paraspinal tenderness she also has a spinal stimulator that is palpable in the subcutaneous tissue in the lower lumbar region on the left side MUSCULOSKELETAL: No deformities, no edema SKIN: Warm and dry, no rash NEURO: Oriented x4, No motor or sensory deficit PSYCH: Normal mood and affect, no agitation Progress Results/Orders Results/Orders Completed Orders - SIRISHA OLIVARES MD Ketorolac Trometh 15mg/Ml Vial (Toradol (04/24/25 01:30) Vital Signs 04/23/25 04/24/25 04/24/25 04/24/25 22:23 00:20 01:32 01:36 Temp 97.0 97.0 97.0 Pulse 54 71 Resp 18 18 18 B/P (MAP) 109/62 123/54 (77) Pulse Ox 98 99 Medical Decision Making Additional information obtaine: old records Findings Patient has a episode of pain from a spinal stimulator that she has a in her left lower lumbar region, the spinal stimulator is palpable in the subcutaneous tissues. She has slight tenderness in the region. The stimulator has been turned off the patient will receive a shot of Toradol and she is comfortable with no neurologic deficits she will be discharged. The patient's pulse oximetry was interpreted as normal and adequate prior hospitalizations were reviewed. Differential Diagnosis Musculoskeletal back pain, stimulator malfunction Departure Time of Disposition: 01:31 Impression: Primary Impression: Low back pain Qualified Codes: M54.50 - Low back pain, unspecified Discharge Instructions: Chronic Back Pain Referrals: NO PRIMARY CARE PROVIDER (PCP) Signature Scribe Signature: no scribe Attestation: The note accurately reflects work and decisions made by me.Sirisha Olivares MD 04/26/25 07:04 SIRISHA OLIVARES MD Apr 24, 2025 01:19
[2025-04-24 01:32] VITALS: TEMP 97
[2025-04-24 01:36] VITALS: RESP 18
[2025-04-24] MEDS: ketorolac trometh 15mg/ml vial 15 MG/ML ML IM ONE (01:36)
== END 2025-04-24 01:40 | disposition home or self-care (01) ==
LOC: ER 22:22
DX: M54.50 Low back pain, unspecified (principal); I10 Essential (primary) hypertension; F31.9 Bipolar disorder, unspecified; E78.00 Pure hypercholesterolemia, unspecified; E11.9 Type 2 diabetes mellitus without complications; K21.9 Gastro-esophageal reflux disease without esophagitis; Z90.49 Acquired absence of other specified parts of digestive tract; Z87.19 Personal history of other diseases of the digestive system; Z88.8 Allergy status to other drugs, medicaments and biological substances; Z79.899 Other long term (current) drug therapy; Z98.890 Other specified postprocedural states
CPT/HCPCS: 72100; 96372; 99283; J1885

== ENCOUNTER 2025-05-14 08:30 | Outpatient (CLI) | payer MEDICARE, MEDICAID ==
--- NOTE | 2025-05-14 11:50 | RADIOLOGY REPORT ---
CT Chest without intravenous contrast INDICATION: SCARRING HISTORY TECHNIQUE: Multidetector spiral CT of the chest was performed from the lung apices to the upper abdomen. Axial, coronal and sagittal multiplanar reformats were performed. Radiation Dose : 1. Chest: CTDI volume is 8.5 mGy. Dose-length product is 336 mGy*cm The dose indicators for CT are the volume Computed Tomography (CT) Dose Index (CTDIvol) and the Dose Length Product (DLP), and are measured in units of mGy and mGy-cm, respectively. These indicators are not patient dose, but values generated from the CT scanner acquisition factors. The report includes radiation exposure data for exposures received during this examination. Comparison: None Findings: Lower neck: Normal thyroid. Lungs: No focal consolidation. Biapical scarring. Dependent atelectasis. Heart/Vascular Structures: Coronary artery calcifications. Vascular calcifications of the aorta. Lymph Nodes: No adenopathy Pleura: No pleural effusion or significant pneumothorax. Musculoskeletal: No acute osseous abnormality. Degenerative changes of the spine. Soft tissues: Normal. Upper abdomen: Moderate hiatal hernia containing ingested material. IMPRESSION: No acute or suspicious thoracic finding. Radiation optimization: All CT scans at this facility use at least one of these dose optimization techniques: automated exposure control mA and/or kV adjustment per patient size (includes targeted exams where dose is matched to clinical indication) or iterative reconstruction.
== END 2025-05-14 23:59 | disposition home or self-care (01) ==
LOC: RAD 08:30
PROVIDERS: ATTEND Nurse Practitioner Family
DX: J98.11 Atelectasis (principal); I25.10 Atherosclerotic heart disease of native coronary artery without angina pectoris; I70.0 Atherosclerosis of aorta; J98.4 Other disorders of lung; M47.814 Spondylosis without myelopathy or radiculopathy, thoracic region; K44.9 Diaphragmatic hernia without obstruction or gangrene
CPT/HCPCS: 71250